=== PATIENT | male | born 1965 | race Hispanic/Latino ===

== ENCOUNTER 2017-06-13 11:36 | Emergency (ER) | payer OTHER ==
[~2017-06-13] VITALS: Ht 170.2 cm; Wt 75.0 kg
[2017-06-13] MEDS ORDERED: PERCOCET 5/325M1 TAB PO (13:44)
[2017-06-13 13:52] VITALS: BP 138/78
== END 2017-06-13 14:00 | disposition home or self-care (01) | DRG 563 ==
LOC: ED 11:36
PROC: 2W3QX1Z Immobilization of Right Lower Leg using Splint (ICD-10-PCS; principal; 2017-06-13)
DX: S92.321A Displaced fracture of second metatarsal bone, right foot, initial encounter for closed fracture (principal); S92.331A Displaced fracture of third metatarsal bone, right foot, initial encounter for closed fracture; S92.341A Displaced fracture of fourth metatarsal bone, right foot, initial encounter for closed fracture; W17.89XA Other fall from one level to another, initial encounter; Y93.H3 Activity, building and construction; Y92.008 Other place in unspecified non-institutional (private) residence as the place of occurrence of the external cause

== ENCOUNTER 2024-08-20 04:45 | Emergency (ER) | payer SELFPAY ==
[~2024-08-20] VITALS: Ht 172.7 cm; Wt 77.0 kg
[~2024-08-20 04:45] MED LIST: PERCOCET 5/325M1 TAB PO
[2024-08-20] MEDS ORDERED: NAPROXEN 250 MG/TAB PO ONE (05:20)
[2024-08-20] MEDS ORDERED: ACETAMINOPHEN 500 MG TAB PO ONE (05:20)
[2024-08-20] MEDS ORDERED: AMOXICILLIN TRIHYDRATE 500 MG/CAP PO ONE (05:20)
[2024-08-20] MEDS ORDERED: AMOXICILLIN500 MG PO (05:23)
[2024-08-20] MEDS ORDERED: NAPROXEN375 MG PO (05:23)
[2024-08-20 05:45] VITALS: BP 160/87
== END 2024-08-20 05:45 | disposition home or self-care (01) | DRG 159 ==
LOC: ED 04:45
DX: K04.7 Periapical abscess without sinus (principal); K02.9 Dental caries, unspecified; K01.1 Impacted teeth